=== PATIENT | female | born 1975 | race Caucasian/White ===

== ENCOUNTER 2020-11-06 10:32 | Outpatient (CLI) | payer BC | END 2020-11-06 10:33 | disposition home or self-care (01) | LOC: BICMAMMO 10:32 | PROVIDERS: ATTEND Obstetrics & Gynecology | DX: N63.20 Unspecified lump in the left breast, unspecified quadrant (principal) | CPT/HCPCS: 77066; G0279 ==

== ENCOUNTER 2022-07-20 16:45 | Inpatient (IN) | payer BC ==
[2022-07-20 17:39] LABS: Hemoglobin 14.3 g/dL (12.0-15.5); Mean Corpuscular HGB CONC 35.4 g/dL (32.0-36.0); Mean Corpuscular Hemoglobin 31.1 pg (27.0-33.0); Mean Corpuscular Volume 87.8 fl (81.6-98.3); Mean Platelet Volume 9.2 fl (7.4-10.4); Platelet Count 251 10x3/uL (150-450); RBC Distribution Width 12.4 % (11.5-14.5); White Blood Cell (WBC) Count 7.7 10x3/uL (3.5-10.5)
[2022-07-20 17:47] LABS: Anion Gap 14 mmol/L (10-20); BUN (Urea Nitrogen) 16 mg/dL (7.0-18.7); Calc. Creatinine Clearance 0 mL/min (70-130); Calcium 9.7 mg/dL (7.8-10.44); Carbon Dioxide 23 mmol/L (22-29); Chloride 105 mmol/L (98-107); Estimated GFR 100; Glucose 93 mg/dL (70-105); Sodium 138 mmol/L (136-145)
[2022-07-22] MEDS ORDERED: Midazolam HCl 5 mg/5 ml Vial ONE (06:23)
[2022-07-22] MEDS ORDERED: fentaNYL Citrate/PF 100 MCG/2 ML SYRINGE ONE (06:23)
[2022-07-22] MEDS ORDERED: Norepinephrine 4 MG/4 ML VIAL ONE (06:24)
[2022-07-22] MEDS ORDERED: niCARdipine 25 MG/10 ML VIAL ONE (06:24)
[2022-07-22] MEDS ORDERED: SUGAMMADEX SODIUM 200 MG/2 ML VIAL ONE (06:24)
[2022-07-22] MEDS ORDERED: Rocuronium Bromide 50 MG/5 ML VIAL ONE (06:24)
[2022-07-22] MEDS ORDERED: Dexmedetomidine 200 MCG/2 ML VIAL ONE (06:24)
[2022-07-22] MEDS ORDERED: Heparin 10,000 UNITS/1 ML VIAL 30,000 UNITS in Sodium Chloride 0.9% 1,000 ML FS SCH (06:45)
[2022-07-22] MEDS ORDERED: CEFAZOLIN 1 GM VIAL ONE (07:10)
[2022-07-22] MEDS ORDERED: Calcium Chloride 1 GM/10 ML Abboject SYRINGE ONE (07:41)
[2022-07-22] MEDS ORDERED: Rocuronium Bromide 10 MG/ML (10ML VIAL) ONE (07:41)
[2022-07-22] MEDS ORDERED: Protamine Sulfate 250 MG/25 ML VIAL ONE (07:41)
[2022-07-22] MEDS ORDERED: Papaverine 60 MG/2 ML VIAL ONE (07:41)
[2022-07-22] MEDS ORDERED: Heparin 30,000 units/30 ml VIAL ONE (07:41)
[2022-07-22] MEDS ORDERED: PROPOFOL 200 MG/20 ML VIAL ONE (07:41)
[2022-07-22] MEDS ORDERED: Thrombin 5000 UNITS/5 ML VIAL ONE (07:41)
[2022-07-22] MEDS ORDERED: Ondansetron PF 4 MG/2 ML Vial ONE (07:41)
[2022-07-22] MEDS ORDERED: Aminocaproic Acid 5 GM/20 ML VIAL ONE (07:41)
[2022-07-22] MEDS ORDERED: Mag-Al 1200 mg/1200 mg/30 ML UDCUP PO PRN (09:59)
[2022-07-22] MEDS ORDERED: Potassium Chloride 20 MEQ/100 ML PREMIX BAG IVPB PRN (09:59)
[2022-07-22] MEDS ORDERED: Acetaminophen 325 MG TAB PO PRN (09:59)
[2022-07-22] MEDS ORDERED: NOREPINEPHRINE 8 MG/250 ML-D5W 250 ML IVPB PRN (09:59)
[2022-07-22] MEDS ORDERED: Morphine 2 MG/ML VIAL SLOW IVP PRN (09:59)
[2022-07-22] MEDS ORDERED: hydrALAZINE 20 MG/ML VIAL SLOW IVP PRN (09:59)
[2022-07-22] MEDS ORDERED: Nitroglycerin 50 MG/250 ML BOT 250 ML IVPB PRN (09:59)
[2022-07-22] MEDS ORDERED: Hetastarch 6% 500 ML 500 ML IVPB PRN (09:59)
[2022-07-22] MEDS ORDERED: Fentanyl 100 MCG/2 ML VIAL SLOW IVP PRN (09:59)
[2022-07-22] MEDS ORDERED: Post-Op Insulin Drip Protocol IVPB ONE (09:59)
[2022-07-22] MEDS ORDERED: Bisacodyl 10 MG SUPP PR PRN (09:59)
[2022-07-22] MEDS ORDERED: Guaifenesin DM 100-10/5 ML UDCUP PO PRN (09:59)
[2022-07-22] MEDS ORDERED: niCARdipine 25 MG in Sodium Chloride 0.9% 250 ML 250 ML IVPB PRN (09:59)
[2022-07-22] MEDS ORDERED: Bisacodyl 5 MG TAB PO PRN (09:59)
[2022-07-22 10:18] LABS: Actual Bicarbonate (HCO3a) 18.8 mEq/L (22-28); Base Excess (BEa) -7.6 mEq/L (-2.0 to +3.0); CO2 Tension 41.3 mmHg (35.0-45.0); Calcium, Ionized (arterial) 1.12 mmol/L (1.12-1.30); Carboxyhemoglobin (COHb) 0.5 gm% (0.0-3.0); O2 Tension (PaO2), arterial 78.3 mmHg (80.0-100.0); Potassium - ABG Lab 4.07 mmol/L (3.70-5.30); pH, Arterial 7.28 (7.35-7.45)
[2022-07-22 10:19] LABS: ALV-art Gradient 155.275 mmHg (0-20); Puncture Site Arterial Line
[2022-07-22 10:28] LABS: #Basophils 0.1 thou/uL (0.0-0.2); #Eosinphils 0.2 thou/uL (0.0-0.7); #Lymphocytes 2.5 thou/uL (1.20-3.40); #Monocytes 0.7 thou/uL (0.11-0.59); #Neutrophils 9.9 thou/uL (1.40-6.50); %Basophils 0.4 % (0.0-1.0); %Eosinophils 1.2 % (0.0-10.0); %Monocytes 5.2 % (0.0-10.0); %Neutrophils 74.1 % (42.0-75.0); Hemoglobin 12.7 g/dL (12.0-16.0); Mean Corpuscular HGB CONC 33.3 g/dL (32.0-36.0); Mean Corpuscular Hemoglobin 30.9 pg (27.0-31.0); Mean Corpuscular Volume 92.9 fL (78.0-98.0); Mean Platelet Volume 6.5 fL (7.4-10.4); Platelet Count 224 thou/uL (130-400); RBC Distribution Width 11.5 % (11.5-14.5); Red Blood Cell (RBC) Count 4.13 mill/uL (4.20-5.40); White Blood Cell (WBC) Count 13.3 thou/uL (4.8-10.8)
[2022-07-22 10:46] LABS: INR-International Normal Ratio 1.2; Prothrombin Time 14.9 sec (12.0-14.7)
[2022-07-22 10:47] LABS: PTT 34.1 sec (22.9-36.1)
[2022-07-22 10:53] LABS: Anion Gap 12 mmol/L (10-20); BUN (Urea Nitrogen) 15 mg/dL (7.0-18.7); Calc. Creatinine Clearance 169 mL/min (70-130); Calcium 7.9 mg/dL (7.8-10.44); Carbon Dioxide 18 mmol/L (22-29); Chloride 111 mmol/L (98-107); Estimated GFR 93; Glucose 185 mg/dL (70-105); Potassium 4.1 mmol/L (3.5-5.1); Sodium 137 mmol/L (136-145)
[2022-07-22] MEDS ORDERED: HUMULIN R 100 UNITS in Sodium Chloride 0.9% 100 ML IVPB SCH (11:00)
[2022-07-22] MEDS ORDERED: Dextrose 50% Abboject 50 ML SYRINGE SLOW IVP PRN (11:00)
[2022-07-22] MEDS: Lactated Ringer's 1,000 ML IV SCH ×2 (11:00→22:19)
[2022-07-22] MEDS ORDERED: Insulin Regular 300 UNITS/3 ML VIAL SC PRN (11:00)
[2022-07-22] MEDS ORDERED: Dextrose 5% in Water 1,000 ML IV PRN (11:00)
[2022-07-22] MEDS: Ketorolac Tromethamine 30 MG/ML VIAL IVP SCH ×3 (11:20→22:18)
[2022-07-22] MEDS ORDERED: Clopidogrel Bisulfate 75 MG TAB PO SCH ×2 (12:00→16:15)
[2022-07-22] MEDS: Fentanyl 100 MCG/2 ML VIAL SLOW IVP PRN ×2 (12:10→16:47)
[2022-07-22 13:15] VITALS: BMI 47.4
[2022-07-22] MEDS ORDERED: FLU VACC QS2022-23(6MOS UP)/PF 60 MCG/0.5 ML SYRINGE IM ONE (14:45)
[2022-07-22] MEDS: HYDROcodone/Acetaminophen 5/325 mg Tablet PO PRN ×2 (15:10→19:34)
[2022-07-22] MEDS: CEFAZOLIN 2 GM in Sodium Chloride 0.9% 100 ML IVPB SCH ×2 (15:11→22:19)
[2022-07-22 16:10] LABS: Hemoglobin 12.8 g/dL (12.0-16.0)
[2022-07-22 16:27] LABS: Potassium 4.1 mmol/L (3.5-5.1)
[2022-07-22] MEDS: Enoxaparin Sodium 40 MG/0.4 ML SYRINGE SC SCH (19:34)
[2022-07-22] MEDS ORDERED: Famotidine/PF 20 mg/2ml Vial SLOW IVP SCH (21:00)
[2022-07-23 04:27] LABS: #Eosinphils 0.1 thou/uL (0.0-0.7); #Lymphocytes 2.1 thou/uL (1.20-3.40); #Monocytes 0.6 thou/uL (0.11-0.59); #Neutrophils 4.9 thou/uL (1.40-6.50); %Basophils 0.2 % (0.0-1.0); %Eosinophils 0.9 % (0.0-10.0); %Lymphocytes 27.7 % (21.0-51.0); %Monocytes 7.6 % (0.0-10.0); %Neutrophils 63.6 % (42.0-75.0); Hemoglobin 11.4 g/dL (12.0-16.0); Mean Corpuscular HGB CONC 32.9 g/dL (32.0-36.0); Mean Corpuscular Hemoglobin 30.5 pg (27.0-31.0); Mean Corpuscular Volume 92.6 fL (78.0-98.0); Mean Platelet Volume 6.9 fL (7.4-10.4); Platelet Count 173 thou/uL (130-400); RBC Distribution Width 11.5 % (11.5-14.5); Red Blood Cell (RBC) Count 3.74 mill/uL (4.20-5.40); White Blood Cell (WBC) Count 7.7 thou/uL (4.8-10.8)
[2022-07-23 04:43] LABS: Anion Gap 12 mmol/L (10-20); BUN (Urea Nitrogen) 9 mg/dL (7.0-18.7); Calc. Creatinine Clearance 200 mL/min (70-130); Calcium 8.3 mg/dL (7.8-10.44); Carbon Dioxide 23 mmol/L (22-29); Chloride 107 mmol/L (98-107); Estimated GFR 109; Glucose 107 mg/dL (70-105); Potassium 3.6 mmol/L (3.5-5.1); Sodium 138 mmol/L (136-145)
[2022-07-23] MEDS: Ketorolac Tromethamine 30 MG/ML VIAL IVP SCH ×4 (05:37→23:44)
[2022-07-23] MEDS: HYDROcodone/Acetaminophen 5/325 mg Tablet PO PRN ×3 (05:38→23:44)
[2022-07-23] MEDS: CEFAZOLIN 2 GM in Sodium Chloride 0.9% 100 ML IVPB SCH (06:17)
[2022-07-23] MEDS ORDERED: diphenhydrAMINE 25 MG CAP PO PRN (07:04)
[2022-07-23] MEDS ORDERED: Zolpidem Tartrate 5 MG TAB PO PRN (07:04)
[2022-07-23] MEDS ORDERED: Nitroglycerin 0.4 MG TAB (25 Tab Bottle) SL PRN (07:04)
[2022-07-23] MEDS ORDERED: Mineral Oil ENEMA PR PRN (07:04)
[2022-07-23] MEDS: Ondansetron PF 4 MG/2 ML Vial IVP PRN (07:21)
[2022-07-23] MEDS ORDERED: Dextrose 50% Abboject 50 ML SYRINGE SLOW IVP PRN (07:45)
[2022-07-23] MEDS ORDERED: Dextrose 5% in Water 1,000 ML IV PRN (07:45)
[2022-07-23] MEDS ORDERED: Insulin Regular 300 UNITS/3 ML VIAL SC PRN (07:45)
[2022-07-23] MEDS: Aspirin Chewable 81 MG TAB PO SCH (09:06)
[2022-07-23] MEDS: Clopidogrel Bisulfate 75 MG TAB PO SCH (09:07)
[2022-07-23] MEDS: Metoprolol Tartrate 25 MG TAB PO SCH ×2 (09:07→20:40)
[2022-07-23] MEDS: Magnesium 2 GM/50 ML(in water) 2 GM in Premix Bag 1 BAG IVPB SCH (09:07)
[2022-07-23] MEDS: Famotidine 20 MG TAB PO SCH ×2 (09:07→20:40)
[2022-07-23] MEDS ORDERED: Insulin Glargine 30 UNITS/0.3 ML VIAL SC PRN (10:49)
[2022-07-23] MEDS: Enoxaparin Sodium 40 MG/0.4 ML SYRINGE SC SCH (20:39)
[2022-07-23] MEDS: Atorvastatin Calcium 20 MG TAB PO SCH (20:39)
[2022-07-24 05:02] LABS: #Eosinphils 0.2 thou/uL (0.0-0.7); #Lymphocytes 2.5 thou/uL (1.20-3.40); #Monocytes 0.7 thou/uL (0.11-0.59); #Neutrophils 4.1 thou/uL (1.40-6.50); %Basophils 0.4 % (0.0-1.0); %Lymphocytes 33.3 % (21.0-51.0); %Monocytes 8.7 % (0.0-10.0); %Neutrophils 55.5 % (42.0-75.0); Hemoglobin 12.2 g/dL (12.0-16.0); Mean Corpuscular HGB CONC 33.3 g/dL (32.0-36.0); Mean Corpuscular Hemoglobin 31.2 pg (27.0-31.0); Mean Corpuscular Volume 93.6 fL (78.0-98.0); Mean Platelet Volume 6.9 fL (7.4-10.4); Platelet Count 181 thou/uL (130-400); RBC Distribution Width 11.5 % (11.5-14.5); Red Blood Cell (RBC) Count 3.93 mill/uL (4.20-5.40); White Blood Cell (WBC) Count 7.4 thou/uL (4.8-10.8)
[2022-07-24 05:10] LABS: Anion Gap 11 mmol/L (10-20); BUN (Urea Nitrogen) 9 mg/dL (7.0-18.7); Calc. Creatinine Clearance 213 mL/min (70-130); Calcium 8.4 mg/dL (7.8-10.44); Carbon Dioxide 25 mmol/L (22-29); Chloride 108 mmol/L (98-107); Estimated GFR 111; Glucose 104 mg/dL (70-105); Potassium 3.9 mmol/L (3.5-5.1); Sodium 140 mmol/L (136-145)
[2022-07-24] MEDS: HYDROcodone/Acetaminophen 5/325 mg Tablet PO PRN ×3 (06:39→21:59)
[2022-07-24] MEDS: Ketorolac Tromethamine 30 MG/ML VIAL IVP SCH ×3 (06:40→18:22)
[2022-07-24] MEDS: Famotidine 20 MG TAB PO SCH ×2 (09:37→22:02)
[2022-07-24] MEDS: Aspirin Chewable 81 MG TAB PO SCH (09:37)
[2022-07-24] MEDS: Clopidogrel Bisulfate 75 MG TAB PO SCH (09:37)
[2022-07-24] MEDS: Magnesium 2 GM/50 ML(in water) 2 GM in Premix Bag 1 BAG IVPB SCH (09:38)
[2022-07-24] MEDS: Furosemide 20 MG TAB PO SCH (09:38)
[2022-07-24] MEDS: Lisinopril 2.5 MG TAB PO SCH (09:38)
[2022-07-24] MEDS: Metoprolol Tartrate 25 MG TAB PO SCH ×2 (09:38→22:01)
[2022-07-24] MEDS: Enoxaparin Sodium 40 MG/0.4 ML SYRINGE SC SCH (22:01)
[2022-07-24] MEDS: Atorvastatin Calcium 20 MG TAB PO SCH (22:02)
[2022-07-25] MEDS: Ketorolac Tromethamine 30 MG/ML VIAL IVP SCH ×3 (00:16→11:51)
[2022-07-25] MEDS: Lisinopril 2.5 MG TAB PO SCH (09:48)
[2022-07-25] MEDS: Aspirin Chewable 81 MG TAB PO SCH (09:49)
[2022-07-25] MEDS: Famotidine 20 MG TAB PO SCH ×2 (09:49→20:07)
[2022-07-25] MEDS: Clopidogrel Bisulfate 75 MG TAB PO SCH (09:49)
[2022-07-25] MEDS: Furosemide 20 MG TAB PO SCH (09:49)
[2022-07-25] MEDS: Metoprolol Tartrate 25 MG TAB PO SCH ×2 (09:49→20:07)
[2022-07-25] MEDS: Polyethylene Glycol 3350 17 GM Packet PO SCH (09:50)
[2022-07-25] MEDS: HYDROcodone/Acetaminophen 5/325 mg Tablet PO PRN ×2 (10:26→20:07)
[2022-07-25] MEDS: Ondansetron PF 4 MG/2 ML Vial IVP PRN (11:51)
[2022-07-25] MEDS: Enoxaparin Sodium 40 MG/0.4 ML SYRINGE SC SCH (20:07)
[2022-07-25] MEDS: Atorvastatin Calcium 20 MG TAB PO SCH (20:07)
[2022-07-26 07:26] VITALS: TEMP 98.3
[2022-07-26] MEDS: Clopidogrel Bisulfate 75 MG TAB PO SCH (09:33)
[2022-07-26] MEDS: Aspirin Chewable 81 MG TAB PO SCH (09:34)
[2022-07-26] MEDS: Famotidine 20 MG TAB PO SCH (09:34)
[2022-07-26] MEDS: Metoprolol Tartrate 25 MG TAB PO SCH (09:34)
[2022-07-26] MEDS: Furosemide 20 MG TAB PO SCH (09:34)
[2022-07-26] MEDS: Lisinopril 2.5 MG TAB PO SCH (09:34)
[2022-07-26] MEDS: Polyethylene Glycol 3350 17 GM Packet PO SCH (09:36)
[2022-07-26] MEDS: HYDROcodone/Acetaminophen 5/325 mg Tablet PO PRN (10:17)
[2022-07-26 11:10] VITALS: BP 116/69
== END 2022-07-26 11:46 | disposition home or self-care (01) | DRG 236 ==
LOC: SURG A 07-22 06:03 → CCU 07-22 10:19 → 2NO 07-24 22:29
PROVIDERS: ADMIT Thoracic Surgery (Cardiothoracic Vascular Surgery); ATTEND Thoracic Surgery (Cardiothoracic Vascular Surgery)
PROC: 02100Z9 Bypass Coronary Artery, One Artery from Left Internal Mammary, Open Approach (ICD-10-PCS; principal; 2022-07-22)
DX: I25.10 Atherosclerotic heart disease of native coronary artery without angina pectoris (principal); Z68.42 Body mass index [BMI] 45.0-49.9, adult; Z20.822 Contact with and (suspected) exposure to COVID-19; E66.01 Morbid (severe) obesity due to excess calories; I10 Essential (primary) hypertension; E78.2 Mixed hyperlipidemia; K58.9 Irritable bowel syndrome, unspecified; F90.9 Attention-deficit hyperactivity disorder, unspecified type; Z79.82 Long term (current) use of aspirin; Z79.899 Other long term (current) drug therapy
CPT/HCPCS: 36416; 71045; 80048; 82805; 85025; 85027; 85610; 85730; 86850; 86900; 86901; 87811; 93005; 93010; 93798; 97139; C1751; J0360; J0690; J1642; J1644; J1650; J1815; J1885; J2250; J2405; J2440; J2704; J2720; J3010; J3370; J3475; J3480; J3490; J7120; P9045; S0017; S0028

== ENCOUNTER 2023-09-01 08:09 | Outpatient (CLI) | payer BC | END 2023-09-01 08:10 | disposition home or self-care (01) | LOC: BICULT 08:09 | PROVIDERS: ATTEND Internal Medicine | DX: R79.89 Other specified abnormal findings of blood chemistry (principal); Z80.0 Family history of malignant neoplasm of digestive organs; R16.0 Hepatomegaly, not elsewhere classified; K76.0 Fatty (change of) liver, not elsewhere classified | CPT/HCPCS: 76700 ==

== ENCOUNTER 2024-08-14 08:57 | Outpatient (CLI) | payer OTHER | END 2024-08-14 08:58 | disposition home or self-care (01) | LOC: SCSMRI 08:57 | PROVIDERS: ATTEND Family Medicine Sports Medicine | DX: S83.241A Other tear of medial meniscus, current injury, right knee, initial encounter (principal) ==